=== PATIENT | male | born 1955 | race Caucasian/White ===

== ENCOUNTER 2021-03-28 08:53 | Observation (INO) | payer OTHER ==
[~2021-03-28] VITALS: Ht 182.9 cm; Wt 108.9 kg
[2021-03-28 10:11] LABS: BASOPHILS 0.6 % (0.0-2.0); EOSINOPHILS 2.5 % (0.0-3.0); HEMATOCRIT 45.4 % (42.0-52.0); HEMOGLOBIN 14.9 gm/dL (14.0-18.0); LYMPHOCYTES 12.8 % (24.0-44.0); MCH 31.4 pg (26.0-34.0); MCHC 32.9 g/dL (28.0-37.0); MCV 95.5 fL (80.0-100.0); MONOCYTES 10.1 % (1.0-8.0); PLATELET COUNT 279 thou/uL (150-400); RBC 4.75 mil/uL (4.50-6.00); RDW 14.1 % (10.5-14.5); WBC 9.5 thou/uL (4.0-11.0)
[2021-03-28 10:21] VITALS: BP 120/74
[2021-03-28 10:21] LABS: ALBUMIN 3.6 g/dL (3.4-5.0); CALCIUM 9.1 mg/dL (8.5-10.1); TOTAL BILIRUBIN 0.3 mg/dL (0.2-1.0); TOTAL PROTEIN 7.8 g/dL (6.4-8.2)
[2021-03-28] MEDS ORDERED: ALBUTEROL0.63 MG/3 INH (10:25)
[2021-03-28 10:27] LABS: POTASSIUM 4.2 mmol/L (3.5-5.1)
[2021-03-28] MEDS ORDERED: PROAIR HFA8.5 GM INH (10:27)
[2021-03-28] MEDS ORDERED: LEVOTHYROXINE112 MC1 PO (10:27)
[2021-03-28] MEDS ORDERED: ONDANSETRON HCL4 M2 PO (10:28)
[2021-03-28] MEDS ORDERED: KLOR-CON M2020 MEQ PO (10:32)
[2021-03-28] MEDS ORDERED: LASIX 40 MG TAB40 MG PO (10:34)
[2021-03-28] MEDS ORDERED: TOPROL XL50 MG PO (10:36)
[2021-03-28 10:37] LABS: APTT 27.3 Seconds (24.5-32.8); INR 0.93; PROTIME 10.2 Seconds (10.5-12.1)
[2021-03-28] MEDS ORDERED: PREDNISONE 10 M10 MG PO (10:37)
[2021-03-28] MEDS ORDERED: PACERONE200 MG PO (10:38)
[2021-03-28 15:30] VITALS: BP 107/74
[2021-03-28 16:00] VITALS: BP 110/69
[2021-03-28 16:30] VITALS: BP 107/74
[2021-03-28 17:30] VITALS: BP 131/73
[2021-03-28 19:26] VITALS: BP 110/69
--- NOTE | 2021-03-28 19:41 | NUR ---
Pt arrived on unit at 1530. He has been pleasant and A&0x4 throughout shift. VS were stable and pt remains afebrile. Pt stated having no pain, just feeling pressure r/t difficulty urinating and pressure in chest (not radiating). Pt completed 3 hour bed rest; groin site is C/D/I with no hematoma; ICD site has some bruising but is approximated and has no drainage. Plan is for discharge on 03/29/21. Conitue to monitor.
--- NOTE | 2021-03-29 03:54 | NUR ---
RECEIVED PATIENT AT 1900H.PATIENT IS ALERT AND ORIENTED X4.ON NASAL CANNULA AT 4LPM, SATURATING WELL.WITH RIGHT GROIN SITE C/D/I.WITH LEFT CHEST WOUND INCISION C/D/I.WITH LEFT SHOULDER IMMOBILIZER ON.HAD COMPLAINTS OF HEARTBURN , INFORMED DR. FRANKEL.ORDERS CARRIED OUT.ALL NEEDS ATTENDED.TO CONTINOUSLY MONITOR.
[2021-03-29 05:10] VITALS: BP 109/64
[2021-03-29 07:20] VITALS: BP 120/87
[2021-03-29 11:33] VITALS: BP 120/87
--- NOTE | 2021-03-29 12:44 | NUR ---
PATIENT DISCHARGED TO HOME. EDUCATION DONE AT BEDSIDE WITH PATIENT, NO QUESTIONS OR CONCERNS AT TIME TEACHING DONE. TAKEN BY WHEELCHAIR WITH STAFF TO PRIVATE VEHCILE WHERE WAITS. TELE AND IV REMOVED.
--- NOTE | 2021-04-13 12:47 | P ---
[facility] [place] [address] [place] [address] PROCEDURE REPORT Name: KYLIE FREED Room #: 210-P [facility] [place] Britt M.RDarrion#: [id number] Admission: 03/28/21 Attend Phys: Bang Corley MD Discharge: 03/29/21 Date of : 57 Report #: [id number] THIS REPORT FOR: cc: NO FAMILY PHYSICIAN or PCP NO FAMILY PHYSICIAN or PCP Bang Corley MD ~ EP STUDY AND ICD IMPLANTATION HISTORY: The patient is a 65-year-old with history of recurrent syncopal episodes and documented sustained ventricular tachycardia on a recent patient monitor. He is here for EP study, possible SVT ablation, possible ICD implantation. PROCEDURES PERFORMED: 1. Comprehensive EP study, CPT code 50800. 2. EP with left atrial pacing recording, CPT code 20939. 3. Program stimulation pacing after IV drug infusion, CPT code 07830. 4. Implantation of a dual chamber ICD. ANESTHESIA: The patient underwent MAC anesthesia with no anesthesia related complications. DESCRIPTION OF PROCEDURE: The patient was brought to the EP laboratory in a fasting and nonsedated state, prepped and draped in a standard fashion. I obtained access to the femoral veins, placing an 8, 6, 6, and 7-Slovenian short sheath using the modified Seldinger technique. Under fluoroscopy, 3 quadripolar catheters were placed at the HRA. His RV positions and a decapolar catheter was placed into the coronary sinus for left atrial pacing or recording. At baseline, the patient was in sinus rhythm with sinus cycle length of 830 milliseconds, AL interval 170 milliseconds, QRS duration 105 milliseconds, QT interval 435 milliseconds, AH interval 107 milliseconds, HV interval 48 milliseconds. Atrial pacing was performed and AV block was noted at 450 milliseconds. AV gabino ERP was noted at 390 milliseconds at a [address] cycle length. Ventricular pacing was performed and there was no evidence of VA conduction. Isoproterenol infusion was initiated and AV block was noted at 390 milliseconds. AV gabino ERP was noted at 330 milliseconds at a [address] cycle length. VA block was noted at 450 milliseconds and ventricular ERP was 210 at [address] cycle length. Isoproterenol infusion at 2 mcg per minute. There was some evidence of right bundle branch block aberration, but no arrhythmias were noted. Next, ventricular stimulation was performed at 500, 400, and [address] cycle lengths and no inducible VT was noted. Isoproterenol was increased to 4 mcg per minute and AV block was noted at 300 milliseconds. AV gabino ERP was noted at 250 milliseconds at [address] cycle length and I could not induce any VT nor any SVTs. There were occasional PVCs that were left [facility] [address] [place] [address] PROCEDURE REPORT Name: KYLIE FREED TRESSA Room #: 210-P [facility] [place] Britt M.RDarrion#: [id number] Admission: 03/28/21 Attend Phys: Bang Corley MD Discharge: 03/29/21 Date of : 57 Report #: [id number] bundle branch block, transition in V4 and positive in II, III and aVF, but nothing very frequent and no episodes of nonsustained VT. Based on his syncope and documented VT, I decided to proceed with ICD implantation. Femoral venous sheaths and catheters were pulled at the end of the case. Next, the patient was prepped for ICD implantation. He received IV antibiotics, underwent a venogram showing patency of left axillary vein. I then injected lidocaine below the level of left clavicle. Incision was made, pocket created over the prepectoral fascia and access was obtained twice to left axillary vein using the extrathoracic approach with sheaths positioned using the modified Seldinger technique. Next, a lead was positioned into the right ventricular apex and the right atrial appendage. Both leads had adequate pacing and sensing thresholds connected to the device. Tug test performed. Pocket was irrigated with vancomycin. Pocket closed in 2 layers. Surgical glue was placed to outer skin layer. The patient awoke neurologically and hemodynamically intact. No complications. No significant bleeding. The implant device was [employer], model #[id number], serial #[id number]. The atrial lead was a 5076, serial #[id number]. The RV lead was a 6935, 62 cm, serial #[id number]. The P waves were 3.1 millivolts, pacing impedance 453 ohms, pacing threshold 0.4 volts at 0.5 milliseconds. The RV lead demonstrated R waves of 9 millivolts, pacing impedance of 703 ohms, and pacing threshold 0.5 volts at 0.4 milliseconds. The device was programmed to the AAIR/DDDR 60-130 mode. The VT zone was set at 180-220 beats per minute with ATP while charging. The VF zone was set at greater than 220 beats per minute with ATP while charging followed by max output shocks. CONCLUSIONS: EP study with no evidence of inducible supraventricular tachycardia. No inducible ventricular tachycardia. Successful implantation of a dual chamber ICD implantation given the syncope and documented VT on recent patient monitor. <ELECTRONICALLY SIGNED> By: Bang Corley MD 04/13/21 [id number] Bang Corley MD /nt
== END 2021-03-29 12:50 | disposition home or self-care (01) ==
LOC: CATH 08:53 → 2N 15:32
PROVIDERS: ADMIT Internal Medicine Cardiovascular Disease; ATTEND Internal Medicine Cardiovascular Disease
DX: I47.1 Supraventricular tachycardia (principal); R55 Syncope and collapse; Z20.822 Contact with and (suspected) exposure to COVID-19; I50.30 Unspecified diastolic (congestive) heart failure; E03.9 Hypothyroidism, unspecified; J44.9 Chronic obstructive pulmonary disease, unspecified; Z79.82 Long term (current) use of aspirin; Z79.899 Other long term (current) drug therapy